=== PATIENT | female | born 1960 | race Caucasian/White ===

== ENCOUNTER → 2017-02-07 | Outpatient (CLI) | payer MEDICARE ==
[~2017-02-07] MED LIST: AMITRIPTYLINE100 MG PO; ATENOLOL25 MG PO; B12 INJ.,1000 MCG/M IM; CALCIUM CARBON600 MG PO; CHEWABLE ASPIRI81 MG PO; DILTIAZEM ER 1120 MG PO; GABAPENTIN 400400 MG PO; IRON TABLETS325 MG PO; LASIX20 MG PO; PANTOPRAZOLE SO40 MG PO; PRAMIPEXOLE D0.25 MG PO; PREDNISONE 5MG.5 MG PO; PRILOSEC10 MG PO; TEMAZEPAM30 MG PO; TRAMADOL 50MG T50 MG PO; VITAMIN D1000 IU PO
--- NOTE | 2017-02-07 14:52 | RADIOLOGY REPORT PS360 ---
BONE DENSITOMETRY(HIP:LT SPINE HISTORY: OSTEOPOROSIS ORDERING PHYSICIAN: Anderson Hewitt MD PATIENT AGE: 56 years COMPARISON: 07/15/2012 FINDINGS: The BMD measured at the left femoral neck is 0.773 g/cm squared with a T score of -1.9. This is considered Osteopenic according to the World Health Organization criteria. Fracture risk is Moderate. Treatment is advised. The bone density of the spine has a T score of -1.6 and has increased by 5% compared to the previous exam. The bone density of the hips is not significant changed IMPRESSION: Osteopenia. Recommend follow up exam January 2019
== END ==
LOC: RAD 12:38
DX: M81.0 Age-related osteoporosis without current pathological fracture (principal); Z78.0 Asymptomatic menopausal state